=== PATIENT | male | born 1975 | race Caucasian/White ===

== ENCOUNTER 2016-06-20 16:28 | Emergency (ER) | payer BC ==
[~2016-06-20] VITALS: Ht 170.2 cm; Wt 86.1 kg
[2016-06-20] MEDS ORDERED: INDOCIN50 MG PO (19:23)
[2016-06-20] MEDS ORDERED: VALIUM5 MG PO (19:23)
[2016-06-20] MEDS ORDERED: PREDNISONE20 MG PO (19:23)
[2016-06-20 21:58] VITALS: BP 130/81
== END 2016-06-20 22:03 | disposition home or self-care (01) ==
LOC: EME 16:28
DX: S39.012A Strain of muscle, fascia and tendon of lower back, initial encounter (principal); S30.0XXA Contusion of lower back and pelvis, initial encounter; W10.9XXA Fall (on) (from) unspecified stairs and steps, initial encounter; Z98.84 Bariatric surgery status
CPT/HCPCS: 72100; 99281; 99284; J3010; J7512